=== PATIENT | female | born 1980 | race Caucasian/White ===

== ENCOUNTER 2017-07-05 02:33 | Observation (INO) | payer OTHER ==
--- NOTE | 2017-07-04 21:15 | HISTORY AND PHYSICAL ---
DATE OF ADMISSION: July 05, 2017 CHIEF COMPLAINT Dysmenorrhea with menorrhagia. HISTORY OF PRESENT ILLNESS Patient is a 46-year-old 3, para 2 with abnormal bleeding beginning three years ago. She reported heavy bleeding vaginally and has worsened over the past several months. She reports the bleeding lasts one to two weeks at a time and she has very severe pain with her periods, and has noted bleeding between her periods as well. There have been no relieving factors. She has had a tubal ligation. She also has pelvic pain and has had episodes of bleeding so heavily it has flooded through her clothes. After discussion of risks and alternatives she had an individual biopsy, showing no signs of hyperplasia and cancer. Ultrasound revealed a cyst consistent with endometriomas. Patient desired to proceed with laparoscopic-assisted vaginal hysterectomy, bilateral salpingo-oophorectomy, modified Guerra culdoplasty and diagnostic cystoscopy. I had a long discussion with patient about removing her ovarires without a trial on Lupron Depot to assess the improvement in her pain. Patient was adamant about removing her ovaries and understood risk that her pain may not be relieved with this surgery, but wished to proceed. MEDICATIONS Xanax 0.5 p.o. b.i.d. p.r.n. ALLERGIES No known drug allergies. REVIEW OF SYSTEMS GENITOURINARY: As per HPI. GENERAL, SKIN, EYES, EARS, NOSE, MOUTH, NECK, RESPIRATORY, CARDIOVASCULAR, GASTROINTESTINAL, NEUROLOGICAL, PSYCHIATRIC: All reviewed and noncontributory. PAST MEDICAL HISTORY Anxiety. PAST SURGICAL HISTORY She has had two C-sections with the second followed with bilateral tubal ligation. FAMILY HISTORY Noncontributory. SOCIAL HISTORY Does not drink alcohol. She is an everyday smoker. No illicit drug use. She is a homemaker. PHYSICAL EXAMINATION VITAL SIGNS: BP 118/76, temp 99, weight 116, height 65 inches. CONSTITUTIONAL: A well-nourished, well-developed female in no distress. SKIN: Without rash or lesions. NECK: Supple without masses. HEART: Regular rate and rhythm. LUNGS: Clear to auscultation bilaterally. ABDOMEN: Soft, nontender, nondistended. Bowel sounds positive. EXTREMITIES: Nontender. No edema. PSYCHIATRIC: Alert and oriented times three. Normal mood and affect. PELVIC: Normal external female genitalia. Normal discharge. No lesions. Cervix normal in appearance. No bladder tenderness. Urethra normal in appearance. She had left and right adnexal tenderness and uterine tenderness. ASSESSMENT AND PLAN Pelvic pain with dysmenorrhea and menorrhagia. Plan to proceed with laparoscopic-assisted vaginal hysterectomy, possible bilateral salpingo- oophorectomy, modified Guerra culdoplasty and diagnostic cystoscopy. Discussed with Charlotte again removal of ovaries and if sign of endometriosis will remove if not will leave ovaries. MTDD
[~2017-07-05] VITALS: Ht 165.1 cm; Wt 50.8 kg
[2017-07-05] VITALS (7 sets, daily range): BP systolic 89–113; BP diastolic 57–73
[~2017-07-05 02:33] MED LIST: ALPR-429 PO; FAMOTIDINE 20 MG TAB PO ONE; LIDOCAINE/SOD BICARB 8.4% SYR ID ONE; MIDAZOLAM 2 MG/2 ML VIAL IVP ONE; NORMOSOL R SOLN(*) 1000 ML BAG 1,000 ML IV PRN
[2017-07-05] MEDS ORDERED: FAMOTIDINE 20 MG TAB ONE (05:17)
[2017-07-05] MEDS ORDERED: LIDOCAINE/SOD BICARB 8.4% SYR ONE (05:17)
[2017-07-05] MEDS ORDERED: SCOPOLAMINE 1.5 MG PATCH TD ONE (06:10)
[2017-07-05 06:15] LABS: PLATELET COUNT, AUTOMATED 279 K/uL (150-450)
[2017-07-05] MEDS ORDERED: HYDROmorphone HCL 2 MG TAB PO ONE (06:15)
[2017-07-05] MEDS ORDERED: CELECOXIB 200 MG CAP PO ONE (06:15)
[2017-07-05] MEDS ORDERED: cefOXitin/DEX(*) 2GM/50ML PREM 50 ML IVPB ONE (06:15)
[2017-07-05] MEDS ORDERED: PHENAZOPYRIDINE 200 MG TAB PO ONE (06:15)
[2017-07-05] MEDS ORDERED: fentaNYL CITR 100 MCG/2 ML AMP ONE ×4 (06:19→11:38)
[2017-07-05] MEDS ORDERED: MIDAZOLAM 2 MG/2 ML VIAL ONE ×2 (06:19→10:17)
[2017-07-05] MEDS ORDERED: LIDOCAINE MPF 1% 5 ML VIAL ONE (06:20)
[2017-07-05] MEDS ORDERED: PROPOFOL EMUL(*) 10MG/ML 20 ML 20 ML ONE (06:20)
[2017-07-05] MEDS ORDERED: ONDANSETRON 4 MG/2 ML VIAL ONE (06:20)
[2017-07-05] MEDS ORDERED: ROCURONIUM BROM 10 MG/ML 10 ML ONE (06:20)
[2017-07-05] MEDS ORDERED: DEXAMETHASONE SOD PHOS 10MG/ML ONE (06:20)
[2017-07-05] MEDS ORDERED: ROPIVACAINE 0.2% 20 ML VIAL ONE (06:49)
[2017-07-05] MEDS ORDERED: ALBUTEROL SULFATE 90 MCG/ACT 8.5 GM HNH ONE (06:59)
[2017-07-05] MEDS ORDERED: MORPHINE PF 5 MG/10 ML AMP ONE (07:14)
[2017-07-05] MEDS ORDERED: PHENYLEPHRINE/NS/PF 0.4MG/10ML ONE (07:30)
--- NOTE | 2017-07-05 07:33 | Post Operative Note ---
Operative Note - [employer] Operative Day Date: Jul 05, 2017 Time: 08:00 Physicians Surgeon: RODRICK Lighter Captain: LEIGHTON Anesthesia: SHAH Diagnosis Pre-Op Diagnosis: DYSMENORRHEA MENORRHAGIA PELVIC PAIN Post-Op Diagnosis: SAME ENDOMETRIOSIS Procedure Findings: UTERUS 7X6 CM ENDOMETRIOSIS LESIONS IN RIGHT AND LEFT POSTERIOR CULDE SAC AND CHOCOLATE CYSTIC LESION ON LEFT INFUNDIBLOPELVIC LIGAMENT 812559 Procedure(s): LAVH BSO [facility]MC DX CYSTO Complications: 0 Fluids Fluids: 2100 CC NR IV Estimated Blood Loss: 160 CC Dictated Date OP Note Dictated: Jul 05, 2017 Copies to: JAELYN MENSAH MD, JOHN MD Jul 05, 2017 07:33
[2017-07-05] MEDS ORDERED: IBUP800T37 PO (07:34)
[2017-07-05] MEDS ORDERED: OXYC-373 PO (07:34)
--- NOTE | 2017-07-05 07:35 | OB/GYN Discharge Summary ---
Discharge Summary Reason for Hosp/Final Diag: (1) Status post laparoscopic assisted vaginal hysterectomy [facility], PAIN CONTROLLED, HAD SOME NAUSEA EARLY BUT BY DISCHARGE TOLERATING DIET AND ACTIVITY Lates Vital Signs Vital Signs Date Time Temp Pulse Resp B/P (MAP) Pulse Ox O2 Delivery O2 Flow Rate FiO2 07/05/17 06:35 99.4 72 12 104/69 (81) 97 Room Air Weight (Pounds): 112 Result Diagram: 07/05/17607 Condition: Improved Discharge: Home, Self Nursing Home Meds Active Scripts Hydroxyzine Hcl (HYDROXYZINE HCL) 25 Mg Tablet, 25 MG PO Q6H Y for ANXIETY, # 120 TAB Prov:JAELYN STERLING MD 07/06/17 Ondansetron Hcl (ZOFRAN) 4 Mg Tablet, 1 TAB PO Q6H Y for NAUSEA/VOMITING, #30 TAB 1 Refill Prov:JAELYN STERLING MD 07/06/17 Norethindrone Acetate (AYGESTIN) 5 Mg Tablet, 5 MG PO QDAY, #30 TAB Prov:JAELYN STERLING MD 07/05/17 Oxycodone Hcl/Acetaminophen (OXYCODONE-ACETAMINOPHEN 5-325) 1 Each Tablet, 1-2 EACH PO Q4H Y for PAIN, #30 TAB 0 Refills TAKE 1-2 TABLET NEEDED FOR PAIN - NO CLOSER THAN EVERY 4 HOURS. Prov:JAELYN STERLING MD 07/05/17 Ibuprofen (IBUPROFEN) 800 Mg Tablet, 1 TAB PO Q8H, #30 TAB 0 Refills Take with food every 8 hours. Prov:JAELYN STERLING MD 07/05/17 Reported Medications Alprazolam (XANAX) 0.5 Mg Tablet, 1-2 TAB PO PRN, TAB 06/28/17 Follow up with: Dr. Sterling [phone] Follow up in: 6 wks PP or PO, 2 wks PO Discharge Diet: As Tolerates Discharge Activity: Pelvic Rest Copies to: JAELYN STERLING MD, JOHN MD Jul 05, 2017 07:35
[2017-07-05] MEDS ORDERED: SUGAMMADEX SOD 200 MG/2 ML SDV ONE (09:44)
[2017-07-05] MEDS ORDERED: FAMOTIDINE(*) 20MG/50ML PREMIX 50 ML IVPB PRN (09:54)
[2017-07-05] MEDS ORDERED: PROMETHAZINE 25 MG/ML 1 ML AMP IVP PRN (09:55)
[2017-07-05] MEDS ORDERED: METOCLOPRAMIDE 10 MG/2 ML SDV IV PRN (09:55)
[2017-07-05] MEDS ORDERED: ONDANSETRON 4 MG/2 ML VIAL IV PRN (09:55)
[2017-07-05] MEDS: ACETAMINOPHEN(*)1000 MG/100 ML 100 ML IVPB SCH ×3 (10:00→21:52)
[2017-07-05] MEDS ORDERED: HYDROmorphone HCL 2 MG/ML SDV ONE ×2 (10:26→11:38)
--- NOTE | 2017-07-05 11:35 | OPERATIVE REPORT 1 ---
EVENT DATE: July 05, 2017 SURGEON: Dell Sterling MD ANESTHESIOLOGIST: Msasimo Oleary MD ANESTHESIA: General. SLEEVE IRONER: Chaparro Cuevas DO PREOPERATIVE DIAGNOSES 1. Dysmenorrhea. 2. Menorrhagia. 3. Pelvic pain. POSTOPERATIVE DIAGNOSES 1. Dysmenorrhea. 2. Menorrhagia. 3. Pelvic pain. 4. Endometriosis. PROCEDURE Laparoscopic-assisted vaginal hysterectomy, bilateral salpingo-oophorectomy, modified Guerra culdoplasty and diagnostic cystoscopy. COMPLICATIONS None. FLUIDS 2100 mL of Normosol IV. ESTIMATED BLOOD LOSS 160 mL. INDICATIONS The patient is a 36-year-old female with worsening pelvic pain, menorrhagia with flooding, and after discussion of risks and alternatives, desired to proceed with definitive management. There was discussion about removing her ovaries if there were signs of endometriosis at the time of surgery. FINDINGS Uterus 7 x 6 cm. She had endometriosis lesions in the right and left posterior cul-de-sac as well as a chocolate cystic lesion on her left infundibulopelvic ligament. PROCEDURE After informed consent was obtained, the patient was taken to the operating room with the IV running, placed in a sitting position, where intrathecal anesthetic was obtained without difficulty. She was then placed in a supine position, where general anesthesia was obtained without difficulty. She was placed in the [facility], examined under anesthesia with the above findings. She was then prepped and draped in the usual fashion. A Galdamez catheter was placed. Side-out speculum was placed into the vagina, cervix grasped with a single tooth tenaculum, uterus sounded to 10 cm. The #8 DUANE uterine manipulator was advanced into the uterine cavity to provide a means to manipulate the uterus. The remainder of the instruments were removed from the vagina. Legs were lowered. Attention was then turned to the abdomen, where 0.2 Naropin was infiltrated into the umbilicus, skin incision made with a scalpel. The Veress needle was advanced into the abdominal cavity. Normal CO2 filling pressures were noted. After adequate insufflation, a 5 mm bladeless trocar was advanced under laparoscopic guidance. Intraabdominal placement was confirmed by laparoscopy. No injuries were noted at time of entry. Left and right lateral ports were placed in a similar fashion with 0.2 Naropin infiltrated into the skin, skin incision made with the scalpel and advancing the 5 mm bladeless trocars under direct visualization. Once these were placed, the patient was then placed in Trendelenburg positioning. There were no abnormalities noted within the abdominal cavity. There were endometriosis lesions noted in the posterior cul-de-sac around the uterosacral ligaments and posterior ovarian fossa. She had a chocolate cystic lesion on her left infundibulopelvic ligament. There was discussion of removing her ovaries if there were signs of endometriosis, which the patient desired. The left infundibulopelvic ligament was then grasped with a Gyrus cutting forceps, coapted and transected, and the tube and ovary were removed from the left pelvic side wall down towards the cornual region of the uterus. The round ligament was then coapted and transected with a Gyrus cutting forceps on the left. Attention was then turned to the right, where the right infundibulopelvic ligament was identified, coapted and transected with the Gyrus cutting forceps, removing the tube and ovary away from the pelvic side wall. There were adhesions of the ovary to the posterior ovarian fossa, which were removed with the Gyrus cutting forceps. The remainder of the tube and ovary were removed from the pelvic side wall with the Gyrus cutting forceps down to the cornual region of the uterus. The round ligament was the coapted and transected. The anterior and posterior leaf of the broad ligament were then , and the anterior leaf was transected down to the lower uterine segment, creating a bladder flap anteriorly. Posterior leaf was then coapted and transected down to the right uterosacral ligament. The uterine arteries were identified at their insertion to the lower uterine segment. They were coapted. Once the uterine arteries were then coapted, attention was turned towards the patient's left, where the left anterior leaf of the broad ligament was then transected down, completing the bladder flap anteriorly. Posterior leaf was then transected down to the left uterosacral ligament. Uterine arteries again were coapted at their insertion to the lower uterine segment. After removal of the instruments, attention was then turned back vaginally, where the legs were elevated. A short weighted speculum was placed into the vagina, cervix grasped with Chava clamps. The cervix was circumscribed with the Bovie. The posterior cul-de-sac was entered sharply with Austin scissors. The long weighted speculum was placed into the posterior cul-de-sac. The uterosacral ligaments were identified bilaterally, grasped with the curved Kirill clamps bilaterally, clamped, transected and suture ligated with #0-Vicryl , tagged for later use in the Guerra's culdoplasty. The anterior vaginal lining was dissected off the endocervical fascia. The cardinal ligaments were identified bilaterally, coapted. Once the cardinal ligaments were clamped with Kirill clamps bilaterally, transected and suture ligated with #0-Vicryl, the vaginal lining was then further dissected off the endocervical fascia, and the uterine arteries were then clamped bilaterally with Kirill clamps, transected and suture ligated with #0-Vicryl. At this point, the anterior compartment was entered sharply with Metzenbaum scissors. Right angle retractor was placed into the anterior cul-de-sac. The remainder of the pedicle on each the left and right side were clamped with Kirill clamps, transected and suture ligated with #0-Vicryl and tagged. The uterus was then removed from the pelvis. Irrigation was performed. There was no oozing from either pedicle. The uterosacral ligaments were then plicated to the ipsilateral portion of vaginal lining bilaterally. The peritoneum was then grasped at the 12 o'clock position , closed in a counter-clockwise manner in a purse string fashion with 2-0 Vicryl down to the right uterosacral ligament. The short weighted speculum was then placed into the vagina. The Guerra's culdoplasty was then performed, purse stringing the posterior peritoneum, exiting out the posterior wall of the vagina bilaterally. The remainder of the peritoneum was then closed in a purse- string fashion. Once this was closed, the vaginal lining was then closed in a running lock fashion down to the level of the uterosacrals with 2-0 Vicryl. The uterosacrals were plicated in the midline, then the posterior cuff was then closed in a running-locked fashion. The Guerra sutures were then tied, elevating the posterior cuff nicely into the vaginal vault. The Galdamez catheter was removed. Cystoscopy was performed. No injuries were noted within the bladder. Bilateral ureteral jets could be seen with Pyridium-stained urine. The cystoscope was then removed. Galdamez catheter was then replaced. Attention was then turned back up to the abdomen. The abdomen was re-insufflated, and suction irrigation of the pelvis was performed. There was no bleeding from any of the pedicles. The gas was allowed to escape from the abdomen, and all instruments were removed from the abdomen. The skin was closed with 4-0 Monocryl and Dermabond. Patient was taken out of [facility], awakened from anesthesia and taken to the recovery room in stable condition. DESTINI
[2017-07-05] MEDS: HYDROmorphone HCL 2 MG TAB PO PRN ×3 (12:45→20:43)
[2017-07-05] MEDS: SIMETHICONE 80 MG CHEW CHEW SCH ×3 (13:46→20:45)
[2017-07-05] MEDS: NICOTINE 21 MG/24 HR PATCH TD SCH (13:47)
[2017-07-05] MEDS: DLR(*) 1000 ML BAG 1,000 ML IV PRN ×2 (16:11→23:12)
--- NOTE | 2017-07-05 16:39 | OB/GYN Progress Note ---
OB Subjective Progress Notes Subjective pain control moderate, no nausea, no fever GI: NEG Nausea, NEG Vomiting, NEG Flatus Pain: Mild OB Objective Physical Exam Vital Signs Date Time Temp Pulse Resp B/P (MAP) Pulse Ox O2 Delivery O2 Flow Rate FiO2 07/05/17 12:20 70 14 95 07/05/17 06:35 99.4 104/69 (81) Room Air Intake and Output 07/06/17 07:00 Intake Total 3650 ml Output Total 350 ml Balance 3300 ml Intake Oral 300 ml IV Total 2750 ml Other 600 ml Output Urine Total 350 ml Cardiovascular: Regular Rate and Rhythm Respiratory: Clear to Auscultation Abdomen: Soft, Non-Tender, Non-Distended, Bowel Sounds Present Extremities: No Edema Result Diagram: 07/05/17 0608 Assessment and Plan Problems: (1) Status post laparoscopic assisted vaginal hysterectomy Assessment & Plan: pain control moderate, no nausea, no fever, getting IV tylenol will add dilaudid if needed JAELYN MENSAH MD Jul 05, 2017 16:39
[2017-07-05] MEDS ORDERED: NORE5TAB8 PO (16:40)
[2017-07-05] MEDS: CELECOXIB 200 MG CAP PO SCH (18:06)
[2017-07-05] MEDS ORDERED: traZODone HCL 50 MG TAB PO ONE (19:30)
[2017-07-05] MEDS: DOCUSATE CALCIUM 240 MG CAP PO SCH (20:35)
[2017-07-05] MEDS: FAMOTIDINE 20 MG TAB PO SCH (20:35)
[2017-07-05] MEDS ORDERED: hydrOXYzine 25 MG TAB PO ONE (22:10)
[2017-07-06] MEDS: HYDROmorphone HCL 2 MG TAB PO PRN ×3 (01:27→12:21)
[2017-07-06 03:11] VITALS: BP 109/69
[2017-07-06] MEDS: ACETAMINOPHEN(*)1000 MG/100 ML 100 ML IVPB SCH (04:12)
[2017-07-06 06:03] LABS: PLATELET COUNT, AUTOMATED 221 K/uL (150-450)
[2017-07-06] MEDS: CELECOXIB 200 MG CAP PO SCH (06:19)
[2017-07-06 07:20] VITALS: BP 106/71
[2017-07-06] MEDS: DLR(*) 1000 ML BAG 1,000 ML IV PRN (08:00)
--- NOTE | 2017-07-06 08:02 | OB/GYN Progress Note ---
OB Subjective Progress Notes Subjective Pain controlled, nausea and anxiety noted. has had nausea in past prior to admission along with anxiety. GI: NEG Nausea, NEG Vomiting, NEG Flatus Pain: Mild OB Objective Physical Exam Vital Signs Date Time Temp Pulse Resp B/P (MAP) Pulse Ox O2 Delivery O2 Flow Rate FiO2 07/06/17 03:11 98.9 80 18 109/69 (82) 99 1.0 07/05/17 19:15 Nasal Cannula Cardiovascular: Regular Rate and Rhythm Respiratory: Clear to Auscultation Abdomen: Soft, Non-Tender, Non-Distended, Bowel Sounds Present Extremities: No Edema Result Diagram: 07/06/17 0545 Assessment and Plan Problems: (1) Status post laparoscopic assisted vaginal hysterectomy Assessment & Plan: pain controlled, nausea, no fever, getting will get voiding trial today. Will start reglan scheduled and atarax for nausea and anxiety JAELYN MENSAH MD Jul 06, 2017 08:02
[2017-07-06] MEDS ORDERED: BISACODYL 10 MG SUPP PR PRN (08:05)
[2017-07-06] MEDS ORDERED: hydrOXYzine 25 MG TAB PO PRN (08:25)
[2017-07-06] MEDS: METOCLOPRAMIDE 10 MG/2 ML SDV IV PRN ×3 (08:35→12:37)
[2017-07-06] MEDS ORDERED: METOCLOPRAMIDE 10 MG/2 ML SDV IVP SCH (08:45)
[2017-07-06] MEDS: DOCUSATE CALCIUM 240 MG CAP PO SCH (09:01)
[2017-07-06] MEDS: FAMOTIDINE 20 MG TAB PO SCH (09:01)
[2017-07-06] MEDS: SIMETHICONE 80 MG CHEW CHEW SCH ×2 (09:02→12:42)
[2017-07-06 09:18] VITALS: Ht 165.1 cm; Wt 50.8 kg
[2017-07-06 11:15] VITALS: BP 108/71
[2017-07-06] MEDS ORDERED: ONDA4TAB97 PO (13:07)
[2017-07-06] MEDS ORDERED: HYDR-4225 PO (13:07)
[2017-07-06] MEDS: NICOTINE 21 MG/24 HR PATCH TD SCH (13:45)
[2017-07-06 14:00] VITALS: BP 109/76
[2017-07-07] MEDS ORDERED: INFLUENZA VIRUS VAC 0.5 ML SYR IM ONLY ONE (09:00)
== END 2017-07-06 13:38 | disposition home or self-care (01) ==
LOC: OR 02:33 → INTOOBSV 12:20 → PED 12:20
PROVIDERS: ADMIT Obstetrics & Gynecology; ATTEND Obstetrics & Gynecology
DX: N94.6 Dysmenorrhea, unspecified (principal); N92.0 Excessive and frequent menstruation with regular cycle; R10.2 Pelvic and perineal pain
CPT/HCPCS: 36415; 58552; 84703; 85025; 88307; G0378; J0131; J0694; J1100; J1170; J2001; J2250; J2270; J2370; J2405; J2550; J2704; J2765; J2795; J3010

== ENCOUNTER → 2017-07-19 | Outpatient (REF) | payer OTHER ==
[2017-07-06 09:18] VITALS: BMI 18.6
[~2017-07-19] MED LIST changes: -FAMOTIDINE 20 MG TAB PO ONE; +HYDR-4225 PO; +IBUP800T37 PO; -LIDOCAINE/SOD BICARB 8.4% SYR ID ONE; -MIDAZOLAM 2 MG/2 ML VIAL IVP ONE; +NORE5TAB8 PO; -NORMOSOL R SOLN(*) 1000 ML BAG 1,000 ML IV PRN; +ONDA4TAB97 PO; +OXYC-373 PO
== END ==
LOC: ZZSENDIN 13:02
PROVIDERS: ATTEND Obstetrics & Gynecology
DX: N76.0 Acute vaginitis (principal)
CPT/HCPCS: 87071; 87077; 87186